=== PATIENT | male | born 1995 | race Caucasian/White ===

== ENCOUNTER 2022-01-06 02:44 | Emergency (ER) | payer OTHER ==
[2022-01-06 03:16] VITALS: BMI 20.3
[2022-01-06 07:49] VITALS: BP 102/54; PULSE 55; RESP 20; TEMP 97.6
== END 2022-01-06 10:25 | disposition home or self-care (01) ==
LOC: JER 02:44
DX: Z59.00 Homelessness unspecified (principal)
CPT/HCPCS: 99281-25

== ENCOUNTER 2024-01-29 07:13 | Emergency (ER) | payer OTHER ==
[2024-01-29 07:30] VITALS: BP 117/75; PULSE 83; RESP 18; TEMP 97.9; BMI 19.5
== END 2024-01-29 10:20 | disposition home or self-care (01) ==
LOC: JER 07:13
DX: M54.9 Dorsalgia, unspecified (principal); M54.50 Low back pain, unspecified; M54.6 Pain in thoracic spine; M25.531 Pain in right wrist; M25.532 Pain in left wrist; M79.601 Pain in right arm; M79.602 Pain in left arm; Y04.8XXA Assault by other bodily force, initial encounter
CPT/HCPCS: 99283-25